=== PATIENT | female | born 1970 | race Caucasian/White ===

== ENCOUNTER 2023-01-19 06:47 | Day surgery (SDC) | payer OTHER, SELFPAY ==
[2023-01-06 11:44] VITALS: BMI 21.9
[2023-01-19 07:43] VITALS: BP 102/61; PULSE 75; RESP 16; TEMP 36.8; O2SAT 100
[2023-01-19] MEDS: LACTATED RINGERS 1,000 ML 150 ML IV CONT (08:00)
--- NOTE | 2023-01-19 08:02 | P.PNAN_ITS ---
Anes - Initial Pre Proc Eval Procedure: Operation Date: 01/19/23 09:00 Proposed Procedures p Colonoscopy - Bassem Dickerson MD Date/Time: 01/19/23 08:02 Surgeon: Bassem Dickerson MD Pre Op Diagnosis: Family History of Colon Cancer Patient Data Age: 52 Gender: F Height: 1.63 m Weight: 57.7 kg Last Vital Signs Temp 36.8 C 01/19/23 07:43 Pulse 75 01/19/23 07:43 Resp 16 01/19/23 07:43 BP 102/61 01/19/23 07:43 Pulse Ox 100 01/19/23 07:43 O2 Del Method Room Air 01/19/23 07:43 Allergies Allergy/AdvReac Type Severity Reaction Status Date / Time No Known Allergies Allergy Verified 01/19/23 07:42 Home Medications Medication Instructions Recorded Confirmed Type sodium,potassium,mag sulfates 17.5 See Rx Instructions PO .COMPLEX 01/05/23 Rx gram-3.13 gram-1.6 gram oral soln #354 mL (Suprep Bowel Prep Kit) Daily Multivitamin 1 tablet PO DAILY 01/06/23 01/06/23 History collagen 1 tablet PO DAILY 01/06/23 01/06/23 History Patient hx anesthesia problems: none Family hx anesthesia problems: none Results Review: All pre-operative results and documents have been reviewed as part of the pre-operative evaluation. [facility] Past Medical History Medical History (Updated 01/19/23 @ 08:02 by Tim Cuellar MD) Melanoma Social History Social History Living arrangements: with family Spiritual care concerns: No Anes - Eval Final PreProcedure Day of Procedure 01/19/23 08:02 Patient weight: normal Heart: regular rate and rhythm Lungs: clear to auscultation Airway: Mallampati scale class II Neurological: alert and oriented Last oral intake: >/= 8 hours ASA classification: II Emergent: no Anesthetic plan: proceed Anesthesia type and monitoring: general GIVS and standard monitoring Results Review: All pre-operative results and documents have been reviewed as part of the pre- operative evaluation. Informed Consent: The patient's anesthetic plan and its attendant risks and benefits were discussed with the patient/family/POA. Questions were solicited and answers provided to the satisfaction of the patient/family/POA.
--- NOTE | 2023-01-19 08:23 | P.HP_ITS ---
History of Present Illness History of Present Illness Consent: Risks, benefits, and alternatives have been discussed and questions answered. Patient agrees to proceed with procedure. Chief complaint: Family History of Colon Cancer Narrative: Cassia Miguel is a 52 year old female Presents for screening colonoscopy. Patient's current weight appetite and bowel movements are normal. Patient denies abdominal pain. She has had no bleeding. Family history is significant that her father had colon cancer in his 70s. Patient presents today for neoplasia screening colonoscopy. Review of Systems Review of Systems: Review of Systems is noncontributory. [facility] Past Medical History Medical History (Updated 01/19/23 @ 08:25 by Bassem Dickerson MD) Melanoma Social History Social History Living arrangements: with family Spiritual care concerns: No Meds Home Medications and Allergies Home Medications Medication Instructions Recorded Confirmed Type sodium,potassium,mag sulfates 17.5 See Rx Instructions PO .COMPLEX 01/05/23 Rx gram-3.13 gram-1.6 gram oral soln #354 mL (Suprep Bowel Prep Kit) Daily Multivitamin 1 tablet PO DAILY 01/06/23 01/06/23 History collagen 1 tablet PO DAILY 01/06/23 01/06/23 History Allergies Allergy/AdvReac Type Severity Reaction Status Date / Time No Known Allergies Allergy Verified 01/19/23 07:42 Vital Signs Vital Signs - 24 hr 01/19/23 07:43 Temperature 98.2 F Pulse Rate 75 Respiratory Rate 16 Blood Pressure 102/61 Pulse Oximetry 100 Oxygen Delivery Room Air Exam Narrative: physical exam reveals patient to be alert. Vital signs stable. HEENT exam is unremarkable. Patient is anicteric. Lungs are clear to auscultation and to percussion. Heart is without murmur or extra sounds. Abdomen bowel sounds are present soft nontender with no hepatosplenomegaly. Digital external rectal exam is normal. Assessment and Plan Assessment and plan (1) Family history of colon cancer in father: Code(s): Z80.0 - Family history of malignant neoplasm of digestive organs Status: Acute Assessment and Plan: Patient's father had colon cancer. Anticipate follow-up colonoscopy at 5 year intervals.
[2023-01-19 08:49] VITALS: BP 93/55; PULSE 71; RESP 16; O2SAT 100
[2023-01-19 08:59] VITALS: BP 95/59; PULSE 66; RESP 18; O2SAT 100
[2023-01-19 09:09] VITALS: BP 94/65; PULSE 71; RESP 18; O2SAT 100
--- NOTE | 2023-01-19 09:11 | WPDANESPN ---
Anes - Prog Note Post-Op Date/Time: 01/19/23 09:11 Cardiovascular status: normal Respiratory status: normal Airway patency: baseline Mental status: baseline Post-Op hydration status: normal Vital Signs: Last Vital Signs Temp 36.8 C 01/19/23 07:43 Pulse 71 01/19/23 09:09 Resp 18 01/19/23 09:09 BP 94/65 L 01/19/23 09:09 Pulse Ox 100 01/19/23 09:09 O2 Del Method Room Air 01/19/23 09:09 Pain Score (VAS): 0/10 I/O: Intake & Output 01/18/23 01/19/23 01/19/23 23:59 07:59 15:59 Intake Total 800 Balance 800 Patient Feedback: Patient satisfied with anesthetic care.
== END 2023-01-19 09:20 | disposition home or self-care (01) ==
PROVIDERS: PCP Physician Assistant Medical; Visit Provider Internal Medicine Gastroenterology
PROC: 0DJD8ZZ Inspection of Lower Intestinal Tract, Via Natural or Artificial Opening Endoscopic (ICD-10-PCS; CPT 45378; principal; 2023-01-19 09:00)
DX: Z80.0 Family history of malignant neoplasm of digestive organs (principal); D12.3 Benign neoplasm of transverse colon; K64.8 Other hemorrhoids
CPT/HCPCS: 45385

== ENCOUNTER 2023-01-19 07:00 | Outpatient (NON) | payer OTHER, SELFPAY | END 2023-01-19 07:01 | disposition home or self-care (01) | PROVIDERS: PCP Physician Assistant Medical; Visit Provider Internal Medicine Gastroenterology | DX: Z12.11 Encounter for screening for malignant neoplasm of colon (principal); Z80.0 Family history of malignant neoplasm of digestive organs; K63.5 Polyp of colon | CPT/HCPCS: 88305 ==